=== PATIENT | female | born 1955 | race Caucasian/White ===

== ENCOUNTER 2019-01-26 13:01 | Emergency (ER) | payer BC ==
--- NOTE | 2019-01-26 13:24 | ED ---
Lower Extremity - HPI Summary HPI Summary: Patient is a 63 y/o F presenting to [facility] with complaints of right ankle and foot pain. She states that she was trying to get dog food from the top shelf at [facility] and stood on bottom shelf. When she was coming down, her right ankle "gave way". She fell and landed on her left side. She denies head injury and any other injuries. Patient only notes pain of right ankle and foot which is aggravated by weight-bearing. No PMHx, no daily medications noted. She reports rare alcohol usage but denies other substance usage. FMHx of HTN and cancer is noted. PSHx of appendectomy and wisdom teeth removal noted. On triage, pain is rated 9/10. Home medications and allergies are reviewed. - History of Current Complaint Chief Complaint: EDExtremityLower Stated Complaint: RT FOOT INJ FROM FALL PER PT Time Seen by Provider: 01/26/19 13:17 Hx Obtained From: Patient Mechanism Of Injury: Twisted Onset of Pain: Prior to Arrival Onset/Duration: Still Present Severity Currently: Severe Pain Intensity: 9 Pain Scale Used: 0-10 Numeric Timing: Constant Location: Is Discrete @ - right ankle and foot Aggravating Factor(s): Weight Bearing - Allergies/Home Medications Allergies/Adverse Reactions: Allergies Allergy/AdvReac Type Severity Reaction Status Date / Time No Known Allergies Allergy Verified 01/26/19 13:10 PMH/Surg Hx/FS Hx/Imm Hx Endocrine/Hematology History: Denies: Hx Diabetes Cardiovascular History: Denies: Hx Hypertension, Hx Pacemaker/ICD Respiratory History: Denies: Hx Asthma Musculoskeletal History: Denies: Hx Osteoporosis Sensory History: Denies: Hx Hearing Aid Psychiatric History: Denies: Hx Panic Disorder - Cancer History Hx Chemotherapy: No Hx Radiation Therapy: No - Surgical History Surgery Procedure, Year, and Place: APPENDECTOMY 7 YRS OLD, WISDOM TEETH REMOVAL Infectious Disease History: No Infectious Disease History: Denies: Traveled Outside the [place] in Last 30 Days - Family History Known Family History: Positive: Hypertension, Other - cancer - Social History Alcohol Use: Rare Substance Use Type: Reports: Cocaine Smoking Status (MU): Never Smoked Tobacco Review of Systems Negative: Fever - on vitals, temp is 98 F Positive: Myalgia - right ankle and foot All Other Systems Reviewed And Are Negative: Yes Physical Exam - Summary Physical Exam Summary: VITAL SIGNS: Reviewed. GENERAL: Patient is a well-developed and nourished female who is lying comfortable in the stretcher. Patient is not in any acute respiratory distress. HEAD AND FACE: No signs of trauma. No ecchymosis, hematomas or skull depressions. No sinus tenderness. EYES: PERRLA, EOMI x 2, No injected conjunctiva, no nystagmus. EARS: Hearing grossly intact. Ear canals and tympanic membranes are within normal limits. MOUTH: Oropharynx within normal limits. NECK: Supple, trachea is midline, no adenopathy, no JVD, no carotid bruit, no c- spine tenderness, neck with full ROM. CHEST: Symmetric, no tenderness at palpation. LUNGS: Clear to auscultation bilaterally. No wheezing or crackles. CVS: Regular rate and rhythm, S1 and S2 present, no murmurs or gallops appreciated. ABDOMEN: Soft, non-tender. No signs of distention. No rebound, no guarding, and no masses palpated. Bowel sounds are normal. EXTREMITIES: Right lateral malleolus is swollen, tender, and with decreased ROM. Good pulses and cap refill, no cyanosis or clubbing. NEURO: Alert and oriented x 3. No acute neurological deficits. Speech is normal and follows commands. SKIN: Dry and warm. Triage Information Reviewed: Yes Vital Signs On Initial Exam: Initial Vitals Temp Pulse Resp BP Pulse Ox 98.0 F 61 14 126/59 98 01/26/19 13:07 01/26/19 13:07 01/26/19 13:07 01/26/19 13:07 01/26/19 13:07 Vital Signs Reviewed: Yes Procedures - Sedation Patient Received Moderate/Deep Sedation with Procedure: No - Splinting Right Lower Extremity Location: RIGHT FOOT Splint: posterior walking Pre-Proc Neuro Vasc Exam: normal Post-Proc Neuro Vasc Exam: normal Splint Applied by Provider: Apollo Henderson - Vital Signs Vital Signs Temp Pulse Resp BP Pulse Ox 01/26/19 13:07 98.0 F 61 14 126/59 98 - Laboratory Lab Statement: Any lab studies that have been ordered have been reviewed, and results considered in the medical decision making process. - Radiology RIGHT ANKLE X-RAY Radiology Interpretation Completed By: Radiologist Summary of Radiographic Findings: IMPRESSION: Right ankle demonstrate soft tissue swelling without definite fracture of the. ankle. THIS REPORT WAS REVIEWED BY DR. HENDERSON. RIGHT FOOT X-RAY Radiology Interpretation Completed By: Radiologist Summary of Radiographic Findings: IMPRESSION: Comminuted fracture of the midshaft of the fourth and fifth metatarsals. THIS REPORT WAS REVIEWED BY DR. HENDERSON. Re-Evaluation - Re-Evaluation First Eval Re-Evaluation Time: 14:39 Change: Improved Comment: Splint applied. Patient to be discharged with ortho follow up. Lower Extremity Course/Dx - Course Assessment/Plan: Patient is a 63-year-old female with right ankle and foot pain. Ankle X ray IMPRESSION: Right ankle demonstrate soft tissue swelling without definite fracture of the ankle. Right foot X ray IMPRESSION: Comminuted fracture of the midshaft of the fourth and fifth metatarsals. Discussed the case with Dr. Vale and recommends a posterior splint and follow- up with orthopedics. I placed a posterior splint and the patient is neurovascularly intact before and after the splint. Patient is feeling better. The patient was given ibuprofen for the pain and she has no complaints. The patient will be non weight bearing and she will be using crutches. I discussed all the findings and test results with the patient. Patient was instructed to return to the emergency room immediately if any of the symptoms return worsens. Plan of care was discussed with the patient and understands and agrees. All questions were answered at patient satisfaction. There were no further complaints or concerns. Lung exam before discharge: CTA B/L. Good air exchange. No wheezing or crackles heard. CVS: S1 and S2 present. No murmurs appreciated. Patient is alert and oriented x 3. Patient is hemodynamically stable. Patient will be discharged home with follow up ortho in the next 2-3 days - Diagnoses Provider Diagnoses: Metatarsal bone fracture - Physician Notifications Discussed Care Of Patient With: Johanna Vale Time Discussed With Above Provider: 14:34 Instructed by Provider To: Other - Patient's case was discussed with Dr. Vale recommends posterior splint application and out patient follow up. Discharge ED - Sign-Out/Discharge Documenting (check all that apply): Patient Departure - discharge - Discharge Plan Condition: Stable Disposition: HOME Patient Education Materials: Foot Fracture in Adults (ED) Referrals: Tray Chan MD [Primary Care Provider] - 3 Days Johanna Vale MD [Medical Doctor] - 3 Days Additional Instructions: PLEASE RETURN TO ED FOR ANY NEW OR WORSENING SYMPTOMS. PLEASE FOLLOW UP WITH ORTHOPEDIC DOCTOR WITHIN THREE DAYS. - Billing Disposition and Condition Condition: STABLE Disposition: Home - Attestation Statements Document Initiated by Jesse: Yes Documenting Scribe: MICHELLE GARDNER Provider For Whom Jesse is Documenting (Include Credential): APOLLO HENDERSON MD Scribe Attestation: I, MICHELLE GARDNER, scribed for APOLLO HENDERSON MD on 01/26/19 at 2139. Scribe Documentation Reviewed: Yes Provider Attestation: The documentation as recorded by the MICHELLE burnett accurately reflects the service I personally performed and the decisions made by me, APOLLO HENDERSON MD Status of Scribe Document: Viewed
[2019-01-26] MEDS ORDERED: Ibuprofen TAB* 800 MG PO ONE (13:32)
--- OUTSIDE RECORDS SUMMARY | 2019-01-26 13:58 | XMS REPORT | Continuity of Care Document ---
:1955 External Reference #:[id number] Author Name Sergio Solorzano, OD Address [address] [place] [address] Care Team Providers Name Role Phone Tray Chan MD - Product [employer] Care Team Information Script Girl [phone] Problems Active Problems Provider Date Vitreous degeneration Sergio Fitzgerald O.D. Onset: 01/24/2014 Incipient senile cataract Sergio Fitzgerald O.D. Onset: 01/24/2014 Myopia Sergio Fitzgerald O.D. Onset: 01/24/2014 Presbyopia Sergio Fitzgerald O.D. 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 Social History Type Date Description Comments Sex Unknown ETOH Use Rarely consumes alcohol Tobacco Use Start: Unknown Patient has never smoked Smoking Status Reviewed: 01/17/19 Patient has never smoked Allergies, Adverse Reactions, Alerts Description No Known Drug Allergies Medications Description No Active Medications Immunizations Description No Information Available Vital Signs Date Vital Result Comment 12/19/2017 8:34am Intraocular Pressure Right Eye 15 mmHg Intraocular Pressure Left Eye 15 mmHg 01/22/2015 3:08pm Intraocular Pressure Right Eye 14 mmHg Intraocular Pressure Left Eye 14 mmHg Results Description No Information Available Procedures Description No Information Available Medical Devices Description No Information Available Encounters Description No Information Available Assessments Description No Information Available Plan of Treatment No Information Available Functional Status Description No Information Available Mental Status Description No Information Available Referrals Description No Information Available
[2019-01-26 15:15] VITALS: BP 121/70
== END 2019-01-26 15:12 | disposition home or self-care (01) ==
LOC: ED 13:01
DX: S92.341A Displaced fracture of fourth metatarsal bone, right foot, initial encounter for closed fracture (principal); S92.351A Displaced fracture of fifth metatarsal bone, right foot, initial encounter for closed fracture; M79.671 Pain in right foot; X50.9XXA Other and unspecified overexertion or strenuous movements or postures, initial encounter; Y92.9 Unspecified place or not applicable
CPT/HCPCS: 99282; A9270-GY